=== PATIENT | female | born 1935 | race Caucasian/White ===

== ENCOUNTER 2022-03-15 10:16 | Emergency (ER) | payer MEDICARE, SELFPAY ==
--- NOTE | ~2022-03-15 | XR_ITS ---
EXAMINATION: XR chest 2V DATE: 03/15/2022 10:45 INDICATION: Cough and crackles. TECHNIQUE: frontal and lateral views of the chest were obtained. COMPARISON: None FINDINGS: Cardiomegaly. Retrocardiac opacity with central lucency at the medial left lower lung zone consistent with a moderate-sized hiatal hernia. Additional airspace opacities more lateral in the left lower silva ng zone and more subtle mild streaky opacities along the right lung base which could represent atelec tasis or pneumonia. No pneumothorax or pleural effusion. Mild thoracolumbar dextrocurvature with mode rate spondylosis. 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 Partially visualized IV C filter projecting over the right side of the upper lumbar spine. IMPRESSION: 1. Opacities at the bilateral lower lung zones, left greater than right which could represent pneumon ia or atelectasis. 2. Cardiomegaly. 3. Moderate-sized hiatal hernia. 4. IVC filter. Reviewed, dictated and finalized at location A. [employer] IMPRESSION: 1. Opacities at the bilateral lower lung zones, left greater than right which c ould represent pneumonia or atelectasis. 2. Cardiomegaly. 3. Moderate-sized hiatal hernia. 4. IVC filter.
--- NOTE | 2022-03-15 10:21 | ED.URI ---
HPI - URI/Sore Throat General Chief Complaint: Upper Respiratory Infection Stated Complaint: Headache,Upset Stomach,Diarrhea Time Seen by Provider: 03/15/22 10:20 Source: patient Mode of arrival: ambulatory Limitations: no limitations History of Present Illness HPI Narrative: Ms. Carpio is an 86-year-old female patient presenting to the clinic with complaints of headache, nausea, diarrhea, and fever since yesterday. She reports no shortness of breath or chest pain. No known sick contacts MD elicited complaint: fever, cough, nasal congestion and other (Headache and nausea) Related Data Home Medications Medication Instructions Recorded Confirmed allopurinol 100 mg tablet 200 mg PO DAILY 07/04/21 03/15/22 aspirin 81 mg tablet,delayed 81 mg PO DAILY 07/04/21 03/15/22 release cetirizine 10 mg tablet (Zyrtec) 10 mg PO HS 07/04/21 03/15/22 digoxin 125 mcg (0.125 mg) tablet 125 mcg PO DAILY 07/04/21 03/15/22 hydrochlorothiazide 50 mg tablet 50 mg PO DAILY 07/04/21 03/15/22 isosorbide mononitrate 30 mg 30 mg PO DAILY 07/04/21 03/15/22 tablet,extended release 24 hr levothyroxine 25 mcg tablet 25 mcg PO DAILY 07/04/21 03/15/22 lisinopril 2.5 mg tablet 2.5 mg PO DAILY 07/04/21 03/15/22 omeprazole 40 mg capsule,delayed 40 mg PO HS 07/04/21 03/15/22 release simvastatin 20 mg tablet 20 mg PO DAILY 07/04/21 03/15/22 Allergies Allergy/AdvReac Type Severity Reaction Status Date / Time alcohol AdvReac Mild Hives Verified 03/15/22 10:25 ciprofloxacin [From Cipro] AdvReac Mild Hives Verified 03/15/22 10:25 Review of Systems Review of Systems: Pertinent positives per HPI. Patient denies any rash, visual changes, dizziness, cough, shortness of breath, chest pain, palpitations,vomiting, diarrhea, constipation, abdominal pain, or any urinary issues. [facility] Family History Family History Father Acute myocardial infarction Sibling Breast cancer Mother Breast cancer Social History Social History Social History: prior to this patient was independent Smoking status: Never smoker Comments At the time of my signature, I reviewed and agree with the nursing past medical, surgical, social, and family history. There is no relevant family history pertinent to the patient complaint. Exam Narrative: General: Well-developed, well nourished, in no apparent distress, sitting and wheelchair Head: Normocephalic, atraumatic Eyes: Pupils equally round and reactive to light bilaterally, EOM intact, sclera and conjunctive clear, no discharge, lids normal Ears: TMs intact and clear, ear canals clear, no drainage, grossly hearing normal. Nose: Nares patent, clear nasal discharge, no inflammation, no sinus tenderness. Mouth: Oral pharynx without lesions or masses, good dentition, MMM. Oropharynx mildly red Neck: Supple, trachea midline, no enlargement of anterior or posterior cervical nodes, no thyroid masses or goiter palpable. Cardio: Irregular rate and rhythm, s1 and s2 normal, no murmur appreciated. Resp: Crackles throughout the lung [place], no rhonchi or wheezing or rubs, SpO2 95% on room air, able to speak in full sentences without any sign of respiratory distress Course Course Emergency Course: Portions of this record may have been created with voice recognition software. Level of Care: Express Care Visit Vital Signs Vital signs: Vital Signs Temperature 36.8 C 03/15/22 10:30 Pulse Rate 110 H 03/15/22 10:30 Respiratory Rate 18 03/15/22 10:30 Blood Pressure 126/53 L 03/15/22 10:30 Pulse Oximetry 95 03/15/22 10:30 Oxygen Delivery Room Air 03/15/22 10:30 Temperature 37.1 C 03/15/22 11:13 Pulse Rate 95 03/15/22 11:13 Respiratory Rate 16 03/15/22 11:13 Blood Pressure 111/71 03/15/22 11:13 Pulse Oximetry 97 03/15/22 11:13 Oxygen Delivery Room Air 03/15/22 11:13 V
[2022-03-15 10:30] VITALS: BP 126/53; PULSE 110; RESP 18; TEMP 36.8; O2SAT 95
[2022-03-15 11:13] VITALS: BP 111/71; PULSE 95; RESP 16; TEMP 37.1; O2SAT 97
--- NOTE | 2022-03-15 16:55 | PC.NURSE ---
2nd set of vitals are entered in error & could not be deleted. The 1st set of vitals are correct.
== END 2022-03-15 11:20 | disposition home or self-care (01) ==
PROVIDERS: Emergency Provider Nurse Practitioner Family; PCP Physician Assistant
DX: J10.1 Influenza due to other identified influenza virus with other respiratory manifestations (principal); J18.9 Pneumonia, unspecified organism; I48.91 Unspecified atrial fibrillation; I25.10 Atherosclerotic heart disease of native coronary artery without angina pectoris; Z86.718 Personal history of other venous thrombosis and embolism; E78.00 Pure hypercholesterolemia, unspecified; I10 Essential (primary) hypertension; Z86.711 Personal history of pulmonary embolism; K21.9 Gastro-esophageal reflux disease without esophagitis; M19.90 Unspecified osteoarthritis, unspecified site; Z96.653 Presence of artificial knee joint, bilateral; F41.9 Anxiety disorder, unspecified; F32.A Depression, unspecified
CPT/HCPCS: 71046; 99213; G0463